=== PATIENT | female | born 1985 | race Caucasian/White ===

== ENCOUNTER 2019-11-20 03:55 | Emergency (ER) | payer OTHER, SELFPAY ==
[2019-11-20 04:25] VITALS: BP 119/84; PULSE 91; RESP 18; TEMP 36.6; O2SAT 97
--- NOTE | 2019-11-20 04:35 | PC.NURSE ---
Pt comes from home via [place] [facility] with [place] [employer] for ETOH intoxication. Pt had 2 bottles of Radha. Speak full clear sentence. Denies SI/HI. VSS. NSR on the monitor. Belonging locked in locker number 10. Safety measures in place. Will continue to monitor.
[2019-11-20 06:31] VITALS: BP 92/56; PULSE 72; RESP 14; O2SAT 99
== END 2019-11-20 06:53 | disposition left against medical advice (07) ==
PROVIDERS: Emergency Provider Emergency Medicine
DX: F10.120 Alcohol abuse with intoxication, uncomplicated (principal)
CPT/HCPCS: 99284